=== PATIENT | female | born 1990 | race Caucasian/White ===

== ENCOUNTER 2017-04-02 13:50 | Emergency (ER) | payer OTHER ==
[~2017-04-02] VITALS: Ht 154.9 cm; Wt 50.0 kg
[2017-04-02] MEDS ORDERED: LORAZEPAM 1 MG TAB SL STA (14:01)
[2017-04-02 14:15] VITALS: Ht 154.9 cm; Wt 50.0 kg
[2017-04-02 14:55] LABS: BUN/CREATININE RATIO 6.6 (10-20); CALCIUM 8.6 mg/dl (8.5-10.1); CREATININE 0.76 mg/dl (0.60-1.20); POTASSIUM 3.3 mmol/L (3.5-5.1)
[2017-04-02 15:01] LABS: PREG INTERNAL NEGATIVE QC NEG CLEAR BACKGROUND; PREG INTERNAL POSITIVE QC POS CONTROL LINE
[2017-04-02 20:32] VITALS: BP 134/78; PULSE 102; O2SAT 99
--- NOTE | 2017-04-02 21:13 | EMERGENCY ROOM VISIT NOTE ---
History Report prepared by Odette: Nehemias Caldwell Under the Supervision of: Dr. Jamaal Muniz D.O. First contact with patient: 13:52 Stated Complaint: ALCOHOL OVERDOSE History of Present Illness The patient is a 27 year old female who presents to the Emergency Room via EMS with a persistent alcohol overdose that started earlier today. Per EMS, the patient admits to have been drinking throughout the day, and she was found at [facility] by police intoxicated and very anxious. The patient took a double dose of her Adderall today, as she has had "issues going on", per EMS. The patient's breathing went down and her pulse rate was in the 130's, and she was brought to first aid. The patient has been cooperative and talkative, but due to the alcohol intoxication and anxiety, the patient was brought here for evaluation. The patient denies any chest pain, shortness of breath, leg pain, falls or trauma. She also notes no chronic medical problems. Source of History: patient, police, EMS Onset: Earlier today Position: other (global - alcohol intoxication) Quality: other (drank throughout the day) Timing: other (persistent) Associated Symptoms: No chest pain, No SOB Note: Associated symptoms: Took double dose of Adderall, very anxious. Breathing went down, pulse rate in 130's. Cooperative and talkative. Denies leg pain. Review of Systems See HPI for pertinent positives & negatives. A total of 10 systems reviewed and were otherwise negative. Past Medical & Surgical Medical Problems: (1) No chronic diseases present Family History No pertinent family history Social History Alcohol Use: occasionally Housing Status: lives with friends Occupation Status: employed Current/Historical Medications Unable to Obtain Active Prescriptions or Reported Meds Physical Exam Vital Signs Date Time Temp Pulse Resp B/P (MAP) Pulse Ox O2 Delivery O2 Flow Rate FiO2 04/02/17 20:32 102 18 134/78 99 04/02/17 19:24 102 18 103/59 100 Room Air 04/02/17 17:38 93 18 103/64 95 Room Air 04/02/17 16:30 105 18 99 Room Air 04/02/17 14:15 113 18 124/94 98 Room Air 04/02/17 14:02 110 Physical Exam GENERAL: Sitting up in bed, anxious, tachypneic, nontoxic. EYE EXAM: Conjunctiva injected, tearful. OROPHARYNX: no exudate, no erythema, lips, buccal mucosa, and tongue normal and mucous membranes are moist HEAD: Normocephalic atraumatic. NECK: supple, no nuchal rigidity, no adenopathy, non-tender LUNGS: Clear to auscultation. Normal chest wall mechanics HEART: no murmurs, S1 normal and S2 normal ABDOMEN: abdomen soft, non-tender, normo-active bowel sounds, no masses, no rebound or guarding. BACK: Back is symmetrical on inspection and there is no deformity, no midline tenderness, no CVA tenderness. SKIN: no rashes and no bruising UPPER EXTREMITIES: Upper extremities are grossly normal. Full active and passive range of motion without tenderness to palpation. LOWER EXTREMITIES: No pitting edema. Full active and passive range of motion without tenderness to palpation. NEURO EXAM: Awake, alert, oriented to person and place. Physically intoxicated. Moving all extremities, no focal deficits. Medical Decision & Procedures Laboratory Results 04/02/17 14:28 Test 04/02/17 14:28 Anion Gap 11.0 mmol/L (3-11) Est Creatinine Clear Calc Drug Dose 85.3 ml/min Estimated GFR () 126.4 Estimated GFR (Non- 109.0 BUN/Creatinine Ratio 6.6 (10-20) Calcium Level 8.6 mg/dl (8.5-10.1) Human Chorionic Gonadotropin, Qual NEG (NEG) Ethyl Alcohol mg/dL 273.0 mg/dl (0-3) Laboratory results per my review. ECG Indication: altered mental status Rate (beats per minute): 91 Rhythm: sinus rhythm Findings: no ectopy, other (normal axis) ED Course ED COURSE: Vital signs were reviewed and showed tachycardic vitals. The patients medical record was reviewed The above diagnostic studies were performed and reviewed. ED treatments and interventions as stated above. 1353: The patient was evaluated in room C2A. A complete history and physical examination was performed. 1401: Ordered Ativan Tab 1 mg SL. 1411: I reevaluated the patient and she is sleeping. 1550: The patient is sleeping. 1715: I reevaluated the patient and she opens her eyes to voice. 2014: Upon reevaluation, the patient is walking around with no complaints. She was able to carry a full conversation. I discussed my findings with the patient and she understands and agrees with the treatment plan. Based on the patients age, coexisting illnesses, exam and lab findings the decision to treat as an outpatient was made. The patient remained stable while under my care. The patient appeared well at the time of discharge. Medical Decision Differential diagnosis: Etiologies such as alcohol intoxication, toxicologic, infection, hypoglycemia, electrolyte abnormalities, cardiac sources, intracerebral event, neurologic, as well as others were entertained. Patient is a 27-year-old female brought in from [facility] as patient was found without friends visibly intoxicated without signs of trauma. She is very anxious. Upon arrival she is tearful and very tachypneic. She is completely nonfocal. Denies any chest pain but admits to shortness of breath. This does resolve when you're talking to her and she slows down her breathing. Alcohol was obtained and was elevated at 270 at 2:30. BMP shows a CO2 of 20. Potassium was slightly low at 3.3 which I favor secondary to alcohol. Beta-hCG was negative. Patient was observed for 6-1/2 hours. She was able to ambulate around the room without difficulty. She currently sober walking without slurring her words and not visibly intoxicated. She was able to state that she is described and from [facility]. She has no new complaints. She is discharged and will taking over back to [facility] where she is staying with friends. Discussed with Pt concerning signs and symptoms to watch out for. Pt was instructed to follow up with their PCP and discussed with the patient their option to return to the ED at anytime for persistent or worsening symptoms. The appropriate anticipatory guidance and out-patient management, including indications for return to the emergency department, were explained at length to the patient and understood. Medication Reconcilliation Current Medication List: was personally reviewed by me Blood Pressure Screening Patient's blood pressure: Normal blood pressure Impression Primary Impression: Alcohol use with intoxication Additional Impression: Alcohol abuse Scribe Attestation The scribe's documentation has been prepared under my direction and personally reviewed by me in its entirety. I confirm that the note above accurately reflects all work, treatment, procedures, and medical decision making performed by me. Departure Information Dispostion Home / Self-Care Prescriptions Unable to Obtain Active Prescriptions or Reported Meds Referrals No Doctor, Assigned Patient Instructions [facility]: [employer] Students and Alcohol Related Visits, My [facility] Additional Instructions Please follow up with your primary care doctor with in the next 24 hours. Any worsening of your symptoms, please return to the ED immediately. This includes any fevers greater than 100.4, worsening pain, chest pain, shortness breath, persistent nausea, vomiting, unable to eat or drink, or any other concerning signs or symptoms from your standpoint. Any new pain or worsening of her symptoms please return to the ER immediately. Absolutely no driving for the next 12 hours. Problem Qualifiers
== END 2017-04-02 20:34 | disposition home or self-care (01) ==
LOC: C.EDC 13:54
DX: F10.129 Alcohol abuse with intoxication, unspecified (principal); F41.9 Anxiety disorder, unspecified